=== PATIENT | female | born 1985 | race Caucasian/White ===

== ENCOUNTER 2024-03-02 12:30 | Outpatient (RCR) | payer BC, SELFPAY ==
--- NOTE | 2024-02-01 09:56 | HP.PTEVAL_ITS ---
Patient's Visit Information Visit Information Visit Information: DIEGO METCALF is a 38 year old F referred to Physical Therapy by Gordon Casiano PA-C with a diagnosis of L shoulder Strain RC/ Pain in L shoulder. Date of Evaluation: 02/01/24 Physical Therapist: NATHALIE Nava Visit Plan Frequency: 2x /Week Duration: 2 Months Plan: 2X/ week for 8 weeks for L scapular and postural strength, L shoulder strength, Ultrasound to decrease inflammation (pt is allergic to cortisone), with HEP HEP: scapular squeezes, Mid rows with green band, orange band double ER Subjective Subjective: It has been 6 mo and her L arm keeps getting worse. Driving hurts the L shoulder. She is L handed. It hurts mid of L humerus and down to elbow and hurts only with certain movements. If she over uses her L shoulder it will start aching. She has no neck pain. She has no N&T. They did an x-ray that showed inflammation. She is allergic to cortisone and they gave her mobic to take and that does not help. It hurts to lay on the L shoulder. Pain L shoulder pain: Pain Intensity (Out of 10): 0 Pain Intensity Range: 6 Objective Objective: R handed: R shoulder flexion full ROM and L shoulder flex 160 (painful arc) R Shoulder ABD Full ROM on the L but pain B shoulder ER full ROM R shoulder AROM T8 and L L1 (increase pain) UE MMT: R shoulder flex 11.6 and L 10.2 R shoulder ABD 13.1 and L 7 R shoulder ER 16.4 and L 14.5 R shoulder IR 13.1 and L 11.1 PROM L shoulder (painful arc and the pain at end range) Pt has increase pain with scapular squeezes if she pinches her shoulder blades but not as much pain is she does not squeeze them to end range. Balance/Special Test Scores Quick DASH Score: 31.8175 Goals Goal 1:: I HEP Goal Time Frame: 6-8 Weeks Goal 2:: Decrease L shoulder pain with movement by 50% Goal Time Frame: 6-8 Weeks Goal 3:: Increase L shoulder AROM to full flexion with no pain Goal Time Frame: 6-8 Weeks Goal 4:: Increase L shoulder strength (at the time of the eval: UE MMT: R shoulder flex 11.6 and L 10.2 R shoulder ABD 13.1 and L 7 R shoulder ER 16.4 and L 14.5 R shoulder IR 13.1 and L 11.1). Goal Time Frame: 6-8 Weeks Rehabilitation Potential Rehabilitation Potential: Good Anticipated Interventions Patient/Client Instruction: Educate patient on: Condition and Plan of Care For the Purpose of:: To decrease pain, To decrease swelling/inflammation, To i ncrease ROM, To improve nutrient delivery to tissue, To improve muscle performance and motor function, To improve ability to perform ADL's, To increase tolerance to activity/condition/position, To improve performance and independence with ADL's, To improve ability of physical actions for home/community/work/leisure, To improve health of tissue, To increase flexibility/ROM and To assume or resume ADL's Therapeutic Exercise to Include: Strength training, Postural training, Flexibilty training, Neuromotor development, Passive ROM, Active ROM and Scapular Strength/Stabilization For the Purpose of:: To decrease pain, To decrease swelling/inflammation, To increase ROM, To improve nutrient delivery to tissue, To improve muscle performance and motor function, To improve ability to perform ADL's, To increase tolerance to activity/condition/position, To improve performance and independence with ADL's, To improve health of tissue, To decrease soft tissue restriction and To increase flexibility/ROM Manual Therapy Techniques to Include: Mobilization, Passive ROM and Soft tissue mobilization For the Purpose of:: To decrease pain, To increase ROM, To improve nutrient delivery to tissue, To improve muscle performance and motor function and To improve ability to perform ADL's Cryotherapy (ice pack, ice massage): Yes Thermo therapy (hot pack): Yes Ultrasound (thermal/non thermal): Yes For the Purpose of:: To decrease pain, To decrease swelling/inflammation, To increase ROM and To improve nutrient delivery to tissue Text: Thank you for the opportunity to evaluate your patient. For Medicare and Medicare HMO plans, please review the plan of care and approve it. It will need to be FAXED BACK to us at [phone] for Medicare purposes. For Medicare only, by signing this I certify the plan of care. Please let me know if there are questions or concerns regarding this plan of care. Physician Signature: Date:
--- NOTE | 2024-03-02 13:26 | HP.PTDCSUM ---
Discharge Summary D/C summary: It has been my pleasure to treat DIEGO METCALF referred by Gordon Casiano PA-C, with the diagnosis of L shoulder Strain RC/ Pain in L shoulder for a total of 6 visit(s). Discharge Date: 03/02/24 Please see the following information for a summary of their discharge status. Subjective Subjective: Went to see a surgeon and he thinks that it is her L elbow tendonitis. She feels that the US does help. She will come back for her elbow Pain L shoulder pain: Pain Intensity (Out of 10): 4 L elbow pain: Pain Intensity (Out of 10): 4 Overall Improvement % Improvement: 10 Objective Objective/Function: Tender over L lateral epicondyle. Painful with reaching out to the side with her L arm. Goals Goal 1:: I HEP Goal Progress: Goal Met Goal 2:: Decrease L shoulder pain with movement by 50% Goal Progress: Progressing Goal 3:: Increase L shoulder AROM to full flexion with no pain Goal Progress: Progressing Goal 4:: Increase L shoulder strength (at the time of the eval: UE MMT: R shoulder flex 11.6 and L 10.2 R shoulder ABD 13.1 and L 7 R shoulder ER 16.4 and L 14.5 R shoulder IR 13.1 and L 11.1). Goal Progress: Progressing Plan Plan: DC PT D/C Information Discharge Comments: DC PT d/c sentence: If there are questions or concerns regarding this patient's physical therapy, please feel free to call me at [phone]. Thank you for the referral of this patient. Sincerely, Natalee Orona, MPT Balance/Gait/Functional tests Balance/Special Test Scores Quick DASH Score: 36.3625 Improvement % Improvement: 10
== END 2024-03-02 13:44 | disposition home or self-care (01) ==
LOC: PT 12:30
PROVIDERS: PCP Family Medicine; Referring Provider Physician Assistant; Visit Provider Physician Assistant
DX: S46.012D Strain of muscle(s) and tendon(s) of the rotator cuff of left shoulder, subsequent encounter (principal); M25.512 Pain in left shoulder
CPT/HCPCS: 97035; 97110; 97140; 97161; 97530

== ENCOUNTER 2024-03-23 16:00 | Outpatient (RCR) | payer BC, SELFPAY ==
--- NOTE | 2024-03-07 15:12 | HP.PTEVAL_ITS ---
Patient's Visit Information Visit Information Visit Information: DIEGO METCALF is a 38 year old F referred to Physical Therapy by Dr. Eddi Martel DO with a diagnosis of L lateral epicondylitis. Date of Evaluation: 03/07/24 Physical Therapist: NATHALIE Nava Visit Plan Frequency: 2x /Week Duration: 6 Weeks Plan: 2X/ week for 6 weeks for US to the L lateral epicondyle (wrist extensors), stretching of wrist extensors, ice massage, eccentric strengthening of wrist with HEP HEP: wrist extensor stretch, Subjective Subjective: Pt reports that she has just gotten a wrist cock up splint and a lateral epicondyle brace and she has noticed less soreness at the end of her work day. She was originally here for her shoulder and she saw Dr Martel and he thought it was L lateral epicondylitis. Not moving her arm helps the pain. Driving increases pain and supination activity of her L wrist a forearm. If she moves her arm the wrong way her pain is like 5/10. 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 Pain with elbow extended and resisted wrist extension and supination US @1.0w/cm2 X 8 min to the L wrist extensors Balance/Special Test Scores Quick DASH Score: 38.6350 Goals Goal 1:: I HEP Goal Time Frame: 6-8 Weeks Goal 2:: Be able to reach out laterally to the side or supinate her L arm without pain Goal Time Frame: 6-8 Weeks Goal 3:: Be able to get through workday without pain at end of day Goal Time Frame: 6-8 Weeks Goal 4:: Increase L wrist ext strength (at the time of the eval: Wrist ext R 6.2 and L 5.1). Rehabilitation Potential Rehabilitation Potential: Good Anticipated Interventions Text: Thank you for the opportunity to evaluate your patient. For Medicare and Medicare HMO plans, please review the plan of care and approve it. It will need to be FAXED BACK to us at [phone] for Medicare purposes. For Medicare only, by signing this I certify the plan of care. Please let me know if there are questions or concerns regarding this plan of care. Physician Signature: Date:
--- NOTE | 2024-06-15 10:11 | HP.PTDCSUM ---
Discharge Summary D/C summary: It has been my pleasure to treat DIEGO METCALF referred by Dr. Eddi Martel DO, with the diagnosis of L lateral epicondylitis for a total of 6 visit(s). Discharge Date: 06/15/24 Please see the following information for a summary of their discharge status. Subjective Subjective: The motions still hurt but the constant throbbing is reduced. She goes back to the Dr pozo. She will discuss PRP cause she can not have steroids. The US helps to relax it but hurts worse as the day goes on. Pain L elbow pain: Pain Intensity (Out of 10): 3 Overall Improvement % Improvement: 15 Objective Objective/Function: Could not really feel too many tender spots today. It just hurts with motions but not necessarily to palpation at this point Goals Goal 1:: I HEP Goal 2:: Be able to reach out laterally to the side or supinate her L arm without pain Goal 3:: Be able to get through workday without pain at end of day Goal 4:: Increase L wrist ext strength (at the time of the eval: Wrist ext R 6.2 and L 5.1). Plan Plan: 2X/ week for 6 weeks for US to the L lateral epicondyle (wrist extensors), stretching of wrist extensors, ice massage, eccentric strengthening of wrist with HEP D/C Information Discharge Comments: DC PT as pt has not scheduled additional visits d/c sentence: If there are questions or concerns regarding this patient's physical therapy, please feel free to call me at [phone]. Thank you for the referral of this patient. Sincerely, Natalee Orona, MPT Balance/Gait/Functional tests Balance/Special Test Scores Quick DASH Score: 38.6350 Improvement % Improvement: 15
== END 2024-03-23 19:00 | disposition home or self-care (01) ==
LOC: PT 16:00
PROVIDERS: PCP Family Medicine; Referring Provider Student in an Organized Health Care Education/Training Program; Visit Provider Student in an Organized Health Care Education/Training Program
DX: M77.12 Lateral epicondylitis, left elbow (principal)
CPT/HCPCS: 97035; 97140; 97161; 97530

== ENCOUNTER → 2024-04-19 | Outpatient (CLI) | payer BC, SELFPAY ==
--- NOTE | 2024-04-19 12:31 | NEURO ---
NCS and/or EMG Patient Report Ordering Doctor: Eddi Martel DATE OF SERVICE: 04/19/24 Clinical Summary: 39 year old female patient with symptoms of pain/discomfort radiating down the left upper extremity. Nerve Conduction Studies Summary: Nerve conduction studies, performed in the left upper extremity, were normal. Needle Examination Summary: Needle examination of select muscles of the left upper extremity was normal. Impression: This is a normal study. There is no electrodiagnostic evidence of a left cervical radiculopathy or nerve entrapment such as carpal or cubital tunnel syndrome. Multi Select Codes Neurology Neurology Interp Codes: 63729-32 Musc test done w/n test comp (interp) (1) and 28317-54 Nrv cndj test 7-8 studies (interp)
== END | disposition home or self-care (01) ==
PROVIDERS: PCP Family Medicine; Referring Provider Student in an Organized Health Care Education/Training Program; Visit Provider Student in an Organized Health Care Education/Training Program
DX: M77.12 Lateral epicondylitis, left elbow (principal); R20.2 Paresthesia of skin
CPT/HCPCS: 95886; 95910